=== PATIENT | male | born 1990 | race Caucasian/White ===

== ENCOUNTER 2017-03-08 16:29 | Emergency (ER) | payer MEDICAID ==
[~2017-03-08] VITALS: Ht 172.7 cm; Wt 66.2 kg
[2017-03-08] MEDS ORDERED: NEXIUM20 MG PO (16:47)
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
[2017-03-08 17:27] VITALS: BP 111/69
== END 2017-03-08 17:36 | disposition home or self-care (01) ==
LOC: UTC 16:29
DX: S93.401A Sprain of unspecified ligament of right ankle, initial encounter (principal); Z72.0 Tobacco use; V29.9XXA Motorcycle rider (driver) (passenger) injured in unspecified traffic accident, initial encounter; Y92.488 Other paved roadways as the place of occurrence of the external cause